=== PATIENT | female | born 1970 | race Caucasian/White ===

== ENCOUNTER 2020-09-19 20:50 | Emergency (ER) | payer SELFPAY ==
[2020-09-19] MEDS ORDERED: Diazepam 5 MG TAB ONE (22:02)
== END 2020-09-19 22:28 | disposition home or self-care (01) ==
LOC: BURERS 20:50
DX: M62.838 Other muscle spasm (principal); F43.0 Acute stress reaction; F41.9 Anxiety disorder, unspecified; Z71.6 Tobacco abuse counseling; Z87.891 Personal history of nicotine dependence
CPT/HCPCS: 93005; 99406

== ENCOUNTER 2022-04-23 16:52 | Emergency (ER) | payer SELFPAY | END 2022-04-23 17:16 | disposition home or self-care (01) | LOC: BURERS 16:52 | DX: B02.9 Zoster without complications (principal); F17.210 Nicotine dependence, cigarettes, uncomplicated | CPT/HCPCS: 99282 ==

== ENCOUNTER 2022-04-29 08:33 | Emergency (ER) | payer SELFPAY ==
[2022-04-29] MEDS ORDERED: Promethazine 25 MG TAB ONE (09:10)
[2022-04-29] MEDS ORDERED: Morphine 4 MG/ML VIAL ONE (09:10)
== END 2022-04-29 09:14 | disposition home or self-care (01) ==
LOC: BURERS 08:33
DX: B02.9 Zoster without complications (principal); F17.210 Nicotine dependence, cigarettes, uncomplicated
CPT/HCPCS: 96372; 99282; J2270; Q0169